=== PATIENT | male | born 1955 | race Caucasian/White ===

== ENCOUNTER → 2020-08-29 08:40 | Outpatient (CLI) | payer MEDICARE, SELFPAY ==
--- NOTE | ~2020-08-29 | MR_ITS ---
EXAMINATION: MR shoulder RT wo con DATE: 08/29/2020 09:18 INDICATION: Right shoulder pain TECHNIQUE: Magnetic resonance imaging (MRI) of the right shoulder was performed without intravenous c ontrast. Sequences included axial PD-weighted FS FSE, coronal oblique PD-weighted FS FSE, coronal obl ique T2-weighted FS FSE, sagittal PD-weighted FS FSE, and sagittal T1-weighted SE. COMPARISON: None. FINDINGS: Coracoacromial arch: The acromion undersurface is curved in morphology (type II). The coracoacromial ligament is normal. M oderate acromioclavicular osteoarthritis. Rotator cuff: Moderate supraspinatus and infraspinatus tendinopathy. Poorly defined partial-thickness tear of the c onjoined portion of the supraspinatus and infraspinatus tendons with thinning of the distal tendon. A retracted tear margin is seen approximately 2 cm medial to the greater tuberosity overlying the apex of the humeral head which measures 5 mm AP and involves approximately one half of the tendon thickne ss at this location. The lateral tear margin appears more irregular with frayed appearing tendon at t he articular side of the footplate at the junction of the superior and middle facets. The teres minor tendon is normal. Mild subscapularis tendinopathy tear involving the cephalad two thirds of the less er tuberosity footplate as well as the lateral margin of the inferior third of the lesser tuberosity footplate. The bursal side of the tendon remains contiguous with the intact transverse humeral ligame nt. The long head of the biceps tendon is medially subluxed across the tear defect. There is medial r etraction of the subscapularis muscle belly without appreciable fatty atrophy. There is normal rotato r cuff muscle bulk and signal. Biceps tendon, glenoid labrum and glenohumeral cartilage: Mild tendinopathy of the intra-articular portion of the long head biceps tendon without discrete tear . Mild glenohumeral osteoarthritis with partial thickness cartilage loss most prominent along the ape x of the humeral head and at the cephalad glenoid. Subtle shallow chondral fissure at the inferior gl enoid. Amorphous mild increased signal at the posterior superior glenoid labrum consistent with frankie l degeneration. Small marginal osteophytes about the inferomedial aspect of the humeral head. Fluid: Is a large amount of fluid in the glenohumeral joint. Mild increased fluid signal at the caudal aspec t of the long head biceps tendon sheath consistent with mild tenosynovitis. No loose osteochondral christi dies. Small amount of fluid in the subacromial/subdeltoid bursa consistent with mild bursitis. Bones: Normal marrow signal with no edema, fracture or pathologic marrow replacing process. Mild cystic bernal ge at the superior and middle facets of the greater tuberosity consistent with chronic rotator cuff d isease. IMPRESSION: 1. Moderate supraspinatus and infraspinatus tendinopathy with small partial-thickness articular sided tear at the conjoined portion of the tendon. 2. Mild subscapularis tendinopathy with partial-thickness tear involving the entire cephalad two thir ds of the lesser tuberosity footplate as well as the lateral margin of the inferior third of the foot plate. 3. Medial subluxation of the long head biceps tendon across the subscapularis footplate tear defect w ith mild tenosynovitis and mild tendinopathy of the intra-articular portion of the long head biceps t endon. 4. Mild glenohumeral osteoarthritis with degeneration of the posterior superior glenoid labrum. 5. Moderate acromioclavicular osteoarthritis. 6. Mild subacromial/subdeltoid bursitis. Reviewed, dictated and finalized at location A.
== END ==
PROVIDERS: PCP Internal Medicine; Visit Provider Physician Assistant Medical
DX: M19.011 Primary osteoarthritis, right shoulder (principal); M75.51 Bursitis of right shoulder; M75.101 Unspecified rotator cuff tear or rupture of right shoulder, not specified as traumatic; S46.111A Strain of muscle, fascia and tendon of long head of biceps, right arm, initial encounter
CPT/HCPCS: 73221

== ENCOUNTER → 2022-03-09 08:43 | Outpatient (CLI) | payer MEDICARE, SELFPAY ==
--- NOTE | ~2022-03-09 | CT_ITS ---
Non-contrast CT scan of the Abdomen and Pelvis Clinical indication: Hiatal hernia, abdominal pain Technique: 5 mm axial scans were obtained through the abdomen and pelvis without intravenous or oral contrast. Dose reduction technique was used on this scan by utilizing automated exposure control and iterative reconstruction technique. The dose-length product (DLP) was 939.48 mGy-cm. Findings: Images through the lung bases reveal no abnormalities. Diffuse fatty infiltration of liver present. Multiple calcified gallstones are present. There is malr otation the right kidney. The spleen, pancreas, left kidney, and adrenals appear normal. There is no aortic aneurysm. There is no evidence of bowel obstruction. Small superior ventral fat-containing hernia noted (axial image 41, sagittal image 80). Images through the pelvis were performed. There is no evidence of ascites or lymphadenopathy. Urinary bladder unremarkable. Prostate gland is significantly enlarged. Mild compression deformity at T11 pr esent, age-indeterminate. Small bilateral fat-containing inguinal hernias noted. Impression: Diffuse fatty infiltration of the liver. Cholelithiasis. Small bowel fat-containing inguinal hernias. Small superior ventral fat-containing hernia. Significantly enlarged prostate gland. Reviewed, dictated and finalized at location . ER Impression: Diffuse fatty infiltration of the liver. Cholelithiasis. Small bowel fat-containing inguinal hernias. Small superior ventral fat-contain ing hernia. Significantly enlarged prostate gland.
== END ==
PROVIDERS: PCP Physician Assistant Medical; Visit Provider Surgery
DX: K43.9 Ventral hernia without obstruction or gangrene (principal); K43.2 Incisional hernia without obstruction or gangrene; K76.0 Fatty (change of) liver, not elsewhere classified; K80.20 Calculus of gallbladder without cholecystitis without obstruction; K40.90 Unilateral inguinal hernia, without obstruction or gangrene, not specified as recurrent
CPT/HCPCS: 74176

== ENCOUNTER → 2022-08-18 12:00 | Outpatient (CLI) | payer MEDICARE, SELFPAY ==
--- NOTE | ~2022-08-18 | MR_ITS ---
MRI of the pelvis and left hip Clinical history: Pain Technique: Coronal T1-weighted, T2-weighted, and proton-density fat-sat images, and axial T1-weighted and proton-density fat-sat images were acquired through the pelvis. Coronal T2-weighted images and c oronal, axial, and sagittal proton-density fat-sat images were acquired through the left hip. Findings: There are acute fractures, nondisplaced, involving the bilateral inferior pelvic rami. Ther e are also bilateral fractures at the junctions of the bilateral superior pubic rami extending into t he anterior acetabula bilaterally. Fractures are all essentially nondisplaced. Fracture demonstrate h yperintense marrow edema and proton-density fat-sat images, and T1 hypointense fracture lines. There is fracture through the left sacral alae, insufficiency fracture versus acute posttraumatic fra cture, essentially nondisplaced, also with marrow edema and T1 hypointensity. No fracture of the proximal femora identified. Bilateral hip joint spaces are preserved. No significant degenerative change or joint effusion. Bilat eral SI joints are preserved. There is mild edema of the left adductor musculature, likely posttraumatic in nature. Remaining muscu lature about the pelvis and left hip is unremarkable. Visualized tendons are intact. No abnormal soft tissue mass or fluid collection seen. Incidental note is made of significantly enlarged prostate gland. IMPRESSION: Acute fractures at the junction of the bilateral superior pubic rami and acetabulae, extending into t he anterior acetabulae bilaterally, essentially nondisplaced. Additional acute fractures of the bilateral inferior pubic rami, nondisplaced. Fracture through the left sacral alae, which could reflect acute posttraumatic fracture versus insuff iciency fracture. Correlate clinically. Mild edema of the left adductor musculature, consistent with low-grade muscle strain or contusion. Reviewed, dictated and finalized at location . IMPRESSION: Acute fractures at the junction of the bilateral superior pubic rami and acetab ulae, extending into the anterior acetabulae bilaterally, essentially nondispla rani. Additional acute fractures of the bilateral inferior pubic rami, nondisplaced. Fracture through the left sacral alae, which could reflect acute posttraumatic fracture versus insufficiency fracture. Correlate clinically. Mild edema of the left adductor musculature, consistent with low-grade muscle s train or contusion.
--- NOTE | ~2022-08-18 | MR_ITS ---
MRI of the lumbar spine Clinical History: Pain Technique: Axial T2-weighted images, and sagittal T1-weighted, T2-weighted, and T2 fat-sat images wer e acquired. Findings: There is marrow edema and T1 hypointensity involving the left sacral alae, partially imaged , consistent with left-sided sacral fracture. No other fracture or subluxation seen in the lumbar spi ne itself. No other bone marrow signal abnormality seen. At L1-L2, there is no disc bulge or herniation. There is moderate facet arthropathy. No spinal canal stenosis or neural foraminal narrowing. At L2-L3, there is no disc bulge or herniation. There is moderate to advanced facet arthropathy. No s izabel canal stenosis or neural foraminal narrowing. At L3-L4, there is mild diffuse disc bulge with advanced facet arthropathy. No central canal stenosis or definite neural foraminal narrowing. At L4-L5, there is degenerative disc narrowing with mild diffuse disc bulge and moderate to advanced facet arthropathy. No central canal stenosis. There is minimal bilateral neural foraminal narrowing. At L5-S1, there is no disc bulge or herniation. No spinal canal stenosis or definite neural foraminal narrowing seen. Paravertebral soft tissues are unremarkable. Impression: Fractures of the left sacral alae, partially imaged. Please see further details on separately reporte d MR exams of the left hip and pelvis. Mild degenerative spondylosis, as detailed above. Reviewed, dictated and finalized at [facility]. Impression: Fractures of the left sacral alae, partially imaged. Please see further details on separately reported MR exams of the left hip and pelvis. Mild degenerative spondylosis, as detailed above.
== END ==
PROVIDERS: PCP Physician Assistant Medical; Visit Provider Physician Assistant Medical
DX: M47.896 Other spondylosis, lumbar region (principal); S32.592A Other specified fracture of left pubis, initial encounter for closed fracture; X58.XXXA Exposure to other specified factors, initial encounter
CPT/HCPCS: 72148; 72195; 73721